=== PATIENT | male | born 1930 | race Caucasian/White ===

== ENCOUNTER → 2017-03-12 | Outpatient (CLI) | payer OTHER ==
[~2017-03-12] MED LIST: ASPIRIN325 PO; CENTRUM SILVER1 EAC5 PO; COREG PO; COUMADIN 2 MG TA2 M1 PO; DEMADEX20 MG PO; FISHOIL PO; GLIPIZIDE ER2.5 MG PO; K-DUR 20 MEQ T20 MEQ PO; KEFLEX250 MG PO; LASIX 40 MG TAB40 M1 PO; LEVOTHYROXINE 0.15MG PO; LIPITOR20 MG PO; LISINOPRIL40 MG PO; NORVASC10 MG PO; POTASSIUM20 PO; PROVENTIL INH; SYNTHROID112 MCG PO; [UNRECOGNIZED DRUG - OTHER] PO
[2017-03-12 07:10] LABS: ABSOLUTE NEUTROPHILS 3.9 thou/uL (1.4-8.2); BASOPHILS 0.7 % (0.0-2.0); EOSINOPHILS 1.4 % (0.0-3.0); HEMATOCRIT 45.7 % (42.0-52.0); LYMPHOCYTES 14.8 % (24.0-44.0); MCH 27.3 pg (26.0-34.0); MCHC 32.8 g/dL (28.0-37.0); MONOCYTES 9.3 % (1.0-8.0); PLATELET COUNT 118 thou/uL (150-400); POLYS 73.8 % (36.0-66.0); RBC 5.51 mil/uL (4.50-6.00); RDW 19.1 % (10.5-14.5); WBC 5.3 thou/uL (4.0-11.0)
[2017-03-12 07:15] LABS: MANUAL DIFF NO
[2017-03-12 07:17] LABS: CALCIUM 8.9 mg/dL (8.5-10.1); CREATININE 2.4 mg/dL (0.7-1.3); POTASSIUM 3.6 mmol/L (3.5-5.1)
[2017-03-12 07:22] LABS: ALBUMIN 3.5 g/dL (3.4-5.0); APTT 33.8 Seconds (24.5-32.8); INR 2.4; PROTIME 25.4 Seconds (9.3-11.4); TOTAL BILIRUBIN 2.3 mg/dL (<0.1-1.0); TOTAL PROTEIN 6.5 g/dL (6.4-8.2)
== END | disposition home or self-care (01) ==
LOC: CATH 06:30
PROVIDERS: Internal Medicine Cardiovascular Disease
DX: I48.91 Unspecified atrial fibrillation (principal); I11.0 Hypertensive heart disease with heart failure; I50.9 Heart failure, unspecified; E11.9 Type 2 diabetes mellitus without complications; I25.2 Old myocardial infarction; I25.10 Atherosclerotic heart disease of native coronary artery without angina pectoris; E78.5 Hyperlipidemia, unspecified; E03.9 Hypothyroidism, unspecified; K21.9 Gastro-esophageal reflux disease without esophagitis; Z95.1 Presence of aortocoronary bypass graft; Z98.890 Other specified postprocedural states; Z96.653 Presence of artificial knee joint, bilateral; Z79.899 Other long term (current) drug therapy
CPT/HCPCS: 62110; 62900; 70005

== ENCOUNTER → 2017-05-20 | Outpatient (CLI) | payer OTHER | LOC: HYPER 07:23 | DX: I87.333 Chronic venous hypertension (idiopathic) with ulcer and inflammation of bilateral lower extremity (principal); L97.221 Non-pressure chronic ulcer of left calf limited to breakdown of skin; L97.821 Non-pressure chronic ulcer of other part of left lower leg limited to breakdown of skin; L97.811 Non-pressure chronic ulcer of other part of right lower leg limited to breakdown of skin; M19.90 Unspecified osteoarthritis, unspecified site; I48.91 Unspecified atrial fibrillation; I25.10 Atherosclerotic heart disease of native coronary artery without angina pectoris; I11.0 Hypertensive heart disease with heart failure; I50.40 Unspecified combined systolic (congestive) and diastolic (congestive) heart failure; E78.5 Hyperlipidemia, unspecified; Z95.0 Presence of cardiac pacemaker; Z79.01 Long term (current) use of anticoagulants; Z79.84 Long term (current) use of oral hypoglycemic drugs; Z96.653 Presence of artificial knee joint, bilateral; Z95.1 Presence of aortocoronary bypass graft ==

== ENCOUNTER → 2017-06-03 | Outpatient (CLI) | payer OTHER | LOC: HYPER 07:14 | DX: I87.333 Chronic venous hypertension (idiopathic) with ulcer and inflammation of bilateral lower extremity (principal); E11.622 Type 2 diabetes mellitus with other skin ulcer; L97.221 Non-pressure chronic ulcer of left calf limited to breakdown of skin; L97.811 Non-pressure chronic ulcer of other part of right lower leg limited to breakdown of skin; I25.10 Atherosclerotic heart disease of native coronary artery without angina pectoris; R60.0 Localized edema; M19.90 Unspecified osteoarthritis, unspecified site; I48.91 Unspecified atrial fibrillation; I11.0 Hypertensive heart disease with heart failure; I50.42 Chronic combined systolic (congestive) and diastolic (congestive) heart failure; Z95.0 Presence of cardiac pacemaker; Z79.84 Long term (current) use of oral hypoglycemic drugs; Z79.01 Long term (current) use of anticoagulants; Z95.1 Presence of aortocoronary bypass graft ==

== ENCOUNTER → 2017-06-23 | Outpatient (CLI) | payer OTHER | LOC: HYPER 07:04 | DX: I87.333 Chronic venous hypertension (idiopathic) with ulcer and inflammation of bilateral lower extremity (principal); L97.221 Non-pressure chronic ulcer of left calf limited to breakdown of skin; E11.622 Type 2 diabetes mellitus with other skin ulcer; L97.821 Non-pressure chronic ulcer of other part of left lower leg limited to breakdown of skin; L97.811 Non-pressure chronic ulcer of other part of right lower leg limited to breakdown of skin; E11.621 Type 2 diabetes mellitus with foot ulcer; L97.511 Non-pressure chronic ulcer of other part of right foot limited to breakdown of skin; I25.10 Atherosclerotic heart disease of native coronary artery without angina pectoris; Z79.01 Long term (current) use of anticoagulants; Z79.84 Long term (current) use of oral hypoglycemic drugs; M19.90 Unspecified osteoarthritis, unspecified site; I48.2 Chronic atrial fibrillation; I11.0 Hypertensive heart disease with heart failure; I50.42 Chronic combined systolic (congestive) and diastolic (congestive) heart failure; E78.5 Hyperlipidemia, unspecified; Z96.653 Presence of artificial knee joint, bilateral; Z95.0 Presence of cardiac pacemaker; Z95.1 Presence of aortocoronary bypass graft ==

== ENCOUNTER 2017-08-13 23:12 | Inpatient (IN) | payer OTHER ==
[~2017-08-13] VITALS: Ht 175.3 cm; Wt 78.9 kg
--- NOTE | ~2017-08-13 | HC ---
[facility] [address] [facility] [place] [address] CONSULTATION Name: NEIDA MONTIEL Room #: 247-P ADM IN M.R.#: [id number] Admission: 08/14/17 Attend Phys: Mk Jones MD Discharge: Date of : 30 Report #: [id number] THIS REPORT FOR: //name// CC: Mk Sumner REQUESTING PHYSICIAN: Dr. Powers. HISTORY OF PRESENT ILLNESS: The patient is an 86-year-old male who presented on August 13 initially to [facility] from [facility] after a fall. The patient reportedly had been recently discharged from [facility] approximately 1-2 weeks prior. He had had a fall in June and was found to have septic shock secondary to pneumonia. He had acute renal failure and subsequently was on hemodialysis. He reports hemodialysis has not gone well since starting, his significant other has been on hemodialysis for 7 years. The patient though states that he would not like to continue this at this time, he is aware of the result of not pursuing hemodialysis and his current condition being . The patient states that he would like to pursue comfort care. The patient at this current time denies significant pain. He does report some dyspnea. He denies abdominal pain, nausea, vomiting or diarrhea or constipation. PAST MEDICAL HISTORY: Significant for atrial fibrillation, type 2 diabetes, coronary artery bypass graft secondary to CAD times 5-vessel, hypertension, end-stage renal disease, peripheral vascular disease. PAST SURGICAL HISTORY: Bilateral hernia repair, thyroidectomy, ICD placement, right TKA, left TKA, CABG times 5-vessel. ALLERGIES: No known drug allergies. FAMILY HISTORY: Father with CVA history. SOCIAL HISTORY: No smoking history. Currently reports that he would like to be DNR. MEDICATIONS: Previously Renvela, Lipitor, levothyroxine, warfarin, aspirin, DuoNeb, [place], midodrine, vitamin C, Xanax, Coreg, glipizide, torsemide. REVIEW OF SYSTEMS: GENERAL: The patient denies any significant fevers or chills, recent weight gain, weight loss. CARDIOVASCULAR: Denies current chest pain or palpitations. GASTROINTESTINAL: Does report decreased appetite, but no nausea, vomiting, constipation or diarrhea. GENITOURINARY: Denies significant urinary symptoms at this time, has had [facility] [address] [place] [address] CONSULTATION Name: NEIDA MONTIEL Room #: 247-P [facility] IN .R.#: [id number] Admission: 08/14/17 Attend Phys: Mk Jones MD Discharge: Date of : 30 Report #: [id number] decreased output. PHYSICAL EXAMINATION: VITAL SIGNS: Temperature 36.4, pulse 70, respirations 26, blood pressure 183/44, 88% on 2 liters, although up to 92% shortly after. GENERAL: The patient is alert, oriented times 3, no acute distress. HEENT: Extraocular muscles appear to be intact. Normocephalic and atraumatic. CARDIOVASCULAR: Irregularly irregular rate and rhythm. No apparent murmur. RESPIRATORY: Bilateral lower lobe: Crackles, otherwise within normal limits. ABDOMEN: Soft, nontender to palpation . Positive bowel sounds in all 4 quadrants. LABORATORY DATA: ____ creatinine 2.1. GFR 30 on admission, which has worsened since then. CBC within normal limits. Hemoglobin 11.4. ASSESSMENT AND PLAN: 1. End-stage renal disease at this time. Last dialysis received Wednesday. The patient desires to pursue palliative care route. He is amenable to inpatient hospice versus long-term care with hospice assistance. I have discussed this with binder caser as well pursuing facility that maybe close to his significant others and his home, so that she can visit frequently. Discussed other options as well prior to any decision making including the assisted recurrently and continued dialysis and the patient reports that he would like to discontinue dialysis and also wishes to be DNR/DNI. 2. Hypertension. Management per primary team contributing to overall prognosis at this time. 3. Coronary artery disease. May have a contributing factor to above as well as peripheral vascular disease. 4. Atrial fibrillation. Management per primary team. 5. Diabetes type 2. Management per primary team. We will follow up with case management. Please call us for any questions regarding this patient. Thank you very much for the consultation. By: [id number] Hank Zheng DO /nt
--- NOTE | ~2017-08-13 | HC ---
[facility] [address] [facility] [place] [address] CONSULTATION Name: NEIDA MONTIEL Room #: 247-P ADM IN M.R.#: [id number] Admission: 08/14/17 Attend Phys: Mk Jones MD Discharge: Date of : 30 Report #: [id number] THIS REPORT FOR: //name// CC: Mk Zapien Sabih DATE OF SERVICE: 08/15/2017 REASON FOR CONSULTATION: End-stage renal disease. HISTORY OF PRESENT ILLNESS: This is an 86-year-old who was in [facility] back in June of this year. He is known to have extensive past medical history. He was initiated on hemodialysis. He dialyzes at the [facility]. He presented complaining of shortness of breath, status post fall. He has cardiomyopathy with an ejection fraction of around 25%. He is known to have coronary artery disease, status post CABG bypass surgery. The patient is not really sure about his dialysis regimen. He is not really sure how much fluid was pulled from him on the day that he had a syncopal episode. He is utilizing a right IJ tunneled catheter. He has no cardiac or neurological symptoms to suggest an underlying inciting event. However, he does have an extensive cardiac history including heart failure, CABG as I have stated. I was asked to manage his end-stage renal disease. PAST MEDICAL HISTORY: 1. End-stage renal disease. 2. End-stage cardiac disease with cardiomyopathy. 3. Diabetes mellitus. 4. Hypertension. 5. Hypothyroidism. 6. Parathyroid carcinoma. PAST SURGICAL HISTORY: 1. CABG. 2. Thyroid surgery. 3. Pacemaker. 4. Knee surgery. 5. Thumb amputation. 6. Total knee arthroplasty. 7. AICD. FAMILY HISTORY: His father of stroke. SOCIAL HISTORY: Never smoked. Social drinker. He lives at the [facility]. REVIEW OF SYSTEMS: [facility] [address] [place] [address] CONSULTATION Name: NEIDA MONTIEL Room #: 247-P [facility]#: [id number] Admission: 08/14/17 Attend Phys: Mk Jones MD Discharge: Date of : 30 Report #: [id number] GENERAL: No fever or chills. CARDIOVASCULAR: No chest pain or palpitation. PULMONARY: Significant for shortness of breath. GASTROINTESTINAL: Decreased p.o. intake. GENITOURINARY: No urinary symptoms. PHYSICAL EXAMINATION: GENERAL: The patient is thin, cachectic, malnourished. VITAL SIGNS: Blood pressure was 82/62, pulse rate is 73. HEAD AND NECK: Significant jugular venous distention. CHEST: Decreased air entry bilaterally. Rhonchi on the right side. CARDIOVASCULAR: No rub detected. ABDOMEN: Soft, nontender. LOWER EXTREMITIES: Extensive wounds and +3 edema. LABORATORY DATA: Reviewed. Sodium 133, potassium 4, chloride 99, carbon dioxide 27, BUN 24, creatinine 2.1. RADIOLOGIC IMAGING: Imaging including his chest x-ray, his head CT were reviewed. ASSESSMENT, IMPRESSION AND PLAN: 1. End-stage renal disease. 2. End-stage liver disease. 3. Terminal cardiomyopathy. 4. Atrial fibrillation. 5. Pleural effusion. 6. Respiratory failure. 7. I had a lengthy discussion with the patient and his about his presentation. We will ask Radiology to aspirate his pleural fluid as this is contributing to his shortness of breath. His INR is elevated due to Coumadin and this will be reversed. 8. I see no indication for dialysis at this point; however, we will reevaluate his needs on Wednesday. 9. This is a person with multiorgan failure including terminal heart failure, terminal end-stage renal disease. He is malnourished. He is cachectic. I do not think that he will do well on dialysis. I have talked with the about a DNR status. We will address hospice, palliative, otherwise we will continue with the usual dialysis. By: [id number] Janna Jo MD /jackelin
--- NOTE | ~2017-08-13 | EKG ---
[address] [address] ELECTROCARDIOGRAM REPORT Name: NEIDA MONTIEL Room #: 205-P ADM IN M.R.#: [id number] Admission: 08/14/17 Attend Phys: Mk Jones MD Discharge: Date of : 30 Report #: [id number] THIS REPORT FOR: //name// 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: [birth year] : 1930 Requested By: Marine Thomas Order Number: [id number] MD: Oracio James Measurements Intervals [place] Rate: 68 P: 0 AK: 83 QRS: 249 QRSD: 186 T: 50 QT: 501 QTc: 533 Interpretive Statements Ventricular-paced complexes No further analysis attempted due to paced rhythm Baseline wander in lead(s) V3 Compared to ECG 03/03/2011 08:09:18 No significant changes Electronically Signed On 08-14-2017 8:48:07 CDT by Oracio James [email or web address] <ELECTRONICALLY SIGNED> By: Oracio James MD 08/14/17 0848 Oracio James MD /EPI
--- NOTE | ~2017-08-13 | HC ---
[address] [place] [address] CONSULTATION Name: NEIDA MONTIEL Room #: 247-P ADM IN M.R.#: [id number] Admission: 08/14/17 Attend Phys: Mk Jones MD Discharge: Date of : 30 Report #: [id number] THIS REPORT FOR: //name// CC: Mk Zapien Sabih DATE OF SERVICE: 08/16/2017 WOUND CARE CONSULTATION PERSONAL PHYSICIAN: None on staff. CHIEF COMPLAINT: Decubitus ulcers. HISTORY OF PRESENT ILLNESS: This is an 86-year-old white male who has been a patient of mine in the past, who was admitted to the hospital after a fall while at [facility]. The patient has suffered multiple skin tears to his upper extremities and was noted upon admission to have significant vascular wounds to his left leg and right foot. These have been there since when I have been following off and on for several months. The patient also was recently noted on admission to have an unstageable pressure ulcer to his coccyx. The patient does complain of pain in the coccygeal region. We have been asked to assist in the care of these. The patient denies any other associated ulceration at this time. PAST MEDICAL HISTORY: Atrial fibrillation, syncope, hypoxia, bilateral hernia repair with mesh back in 1989, congestive heart failure with severe ischemic cardiomyopathy, coronary artery bypass disease, severe peripheral vascular disease, hypothyroidism and gout. DRUG ALLERGIES: None. CURRENT MEDICATIONS: Multiple, I reviewed the patient's medication list. SOCIAL HISTORY: The patient states he has never smoked. The patient does not drink alcohol. FAMILY HISTORY: Significant for peripheral vascular disease. REVIEW OF SYSTEMS: CONSTITUTIONAL: The patient denies fever or chills. NEUROLOGIC: Overall generalized weakness, but no isolated weakness in the arms or legs. EYES: No complaints. ENT: No complaints. CARDIAC: The patient denies chest pain, palpitations or peripheral edema. RESPIRATORY: The patient has chronic shortness of breath and dyspnea and the [facility] [address] [place] [address] CONSULTATION Name: NEIDA MONTIEL Room #: [facility] IN [facility].#: [id number] Admission: 08/14/17 Attend Phys: Mk Jones MD Discharge: Date of : 30 Report #: [id number] associated cough. GASTROINTESTINAL: The patient denies nausea or vomiting, but has some anorexia. GENITOURINARY: The patient denies urgency or frequency. MUSCULOSKELETAL: The patient has pain, generalized body aches. SKIN: There are multiple skin tears in the upper extremities as well as an unstageable ulcer in his coccygeal region and vascular ulcers on his left lateral leg and right foot. PHYSICAL EXAMINATION: VITAL SIGNS: Stable. The patient is afebrile. GENERAL: This is an elderly, chronically ill-appearing white male who is in no acute distress. HEENT: Normocephalic, atraumatic. Mucous membranes are dry. Pupils are round. Sclerae are clear. NECK: Shows small amount of JVD, but no masses. LUNGS: Slightly diminished breath sounds heard throughout, with occasional scattered wheeze. HEART: Irregularly irregular, without murmur. ABDOMEN: Soft, nontender, without organomegaly. EXTREMITIES: The patient has trace to 1+ edema in bilateral lower extremities. Evaluation of his left lateral leg reveals a vascular wound which is 100% slough, with no significant tunneling, tracking or undermining. Lamar-ulcer itself is otherwise intact, without significant erythema, warmth or cellulitis. On his upper extremities, the patient has skin tears, which the wound beds are clean and granulating, without signs of infection. On the right dorsal foot is a vascular ulcer, which is 100% slough covered, without signs of infection or erythema or warmth. In the coccygeal region is an unstageable decubitus ulcer, which is 100% slough covered. NEUROLOGIC: Cranial nerves 2-12 are grossly. Motor and sensory grossly intact. LABORATORY DATA: White count 9.0, hemoglobin 11.4. IMPRESSION: 1. Unstageable decubitus ulcer, sacrococcygeal region, present on admission. 2. 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 3. Vascular ulcer, dorsal right foot, full thickness. 4. Multiple skin tears in the upper extremities, which appear to be healing. 5. Generalized debility. 6. History of protein-calorie malnutrition several months ago. PLAN: At this time, we will do morphine and Silvadene cream to all the open ulcerations, cover this with Xeroform and ABD and secure with Kerlix. On the upper extremities, we will use Optifoam AG and secure with Kerlix; changes Wednesday, Wednesday and Wednesday. Put the patient on low-air loss mattress and will be turned every 2 hours. We have talked to the patient about trying to attempt increase his protein supplementation for healing. At this point in time, the [facility] [address] [place] [address] CONSULTATION Name: NEIDA MONTIEL Room #: 247-P ADM IN .R.#: [id number] Admission: 08/14/17 Attend Phys: Mk Jones MD Discharge: Date of : 30 Report #: [id number] patient does not appear to be a good candidate for physical or occupational therapy. We will see how his hospitalization progresses. There has been a talk about possibly going on palliative care. I appreciate the ability to consult. By: 1830 [id number] Clemente De La Garza MD /jackelin
[2017-08-13 23:13] VITALS: BP 100/49
[2017-08-13 23:49] LABS: ABG SAMPLE TYPE ARTERIAL; BE(vivo) -3.3 mmol/L (-2 to +3); HCO3 22.9 mmol/L (22.0-26.0); O2(CT) 16.2 mL/dL (15.0-23.0); O2Hb 92.5 % (92.0-98.0); PCO2 45.8 mmHg (35.0-45.0); PO2 75.3 mmHg (80.0-100.0); tCO2 24.3 mmol/L (24.0-30.0)
[2017-08-13 23:50] LABS: STICK SITE R.BRACHIAL; pH 7.317 (7.360-7.450)
[2017-08-14] VITALS (63 sets, daily range): BP systolic 61–133; BP diastolic 18–102
[2017-08-14 00:01] LABS: HEMATOCRIT 38.7 % (42.0-52.0); HEMOGLOBIN 12.1 gm/dL (14.0-18.0); MCH 27.8 pg (26.0-34.0); MCHC 31.1 g/dL (28.0-37.0); MCV 89.2 fL (80.0-100.0); PLATELET COUNT 139 thou/uL (150-400); RBC 4.34 mil/uL (4.50-6.00); RDW 21.2 % (10.5-14.5); WBC 8.7 thou/uL (4.0-11.0)
[2017-08-14 00:02] LABS: MANUAL DIFF YES
[2017-08-14 00:05] LABS: ANION GAP 7 mmol/L (7-16); BUN 24 mg/dL (7-18); CALCIUM 8.5 mg/dL (8.5-10.1); CHLORIDE 99 mmol/L (98-107); CO2 27 mmol/L (21-32); CREATININE 2.1 mg/dL (0.7-1.3); GLUCOSE 148 mg/dL (74-106); SODIUM 133 mmol/L (136-145)
[2017-08-14 00:13] LABS: TROPONIN-I < 0.04 ng/mL (<0.04-0.07)
[2017-08-14 00:41] LABS: ABSOLUTE NEUTROPHILS 7.4 thou/uL (1.4-8.2); TOTAL CELL COUNT 100
[2017-08-14 00:42] LABS: ANISOCYTOSIS 2+; LARGE PLATELETS FEW; POLYCHROMASIA 1+
[2017-08-14] MEDS ORDERED: ASPIR 8181 MG PO (01:04)
[2017-08-14] MEDS ORDERED: NORCO 5-325 TA1 EACH PO (01:05)
[2017-08-14] MEDS ORDERED: RENVELA800 MG PO (01:05)
[2017-08-14] MEDS ORDERED: DUONEB 2.5-0.5 M3 ML INH (01:05)
[2017-08-14] MEDS ORDERED: MIDODRINE HCL 55 M1 PO (01:06)
[2017-08-14] MEDS ORDERED: JUVEN PACKET1 EACH PO (01:06)
[2017-08-14] MEDS ORDERED: VITAMINC500 PO (01:06)
[2017-08-14] MEDS ORDERED: XANAX 0.25 MG0.25 MG PO (01:07)
[2017-08-14 03:41] LABS: INR 3.3; PROTIME 31.8 Seconds (9.3-11.4)
[2017-08-14 05:42] LABS: INR 3.1; PROTIME 31.4 Seconds (9.3-11.4)
[2017-08-14 13:06] LABS: CLARITY CLOUDY; COLOR DARK YELLOW; TOTAL VOLUME 55 mL
[2017-08-14 13:52] LABS: MANUAL DIFF YES
[2017-08-14 14:10] LABS: BF RBC 1450 /uL
[2017-08-14 14:11] LABS: BF NUCLEATED CELLS 295
[2017-08-14 14:27] LABS: BF MACROPHAGE 52; BF NEUTROPHILS 35
[2017-08-15] VITALS (80 sets, daily range): BP systolic 67–107; BP diastolic 48–88
[2017-08-15 03:08] LABS: BODY FLUID ALBUMIN 1.2 g/dL (()); BODY FLUID AMYLASE 31 U/L (()); BODY FLUID GLUCOSE 100 mg/dL (()); BODY FLUID LDH 114 IU/L (()); BODY FLUID PROTEIN 2.5 g/dL (())
[2017-08-15 09:30] LABS: PROTIME 13.1 Seconds (9.3-11.4)
[2017-08-15 09:32] LABS: INR 1.3
[2017-08-16] VITALS (25 sets, daily range): BP systolic 69–103; BP diastolic 44–65
[2017-08-16 06:01] LABS: HEMOGLOBIN 11.4 gm/dL (14.0-18.0); MCH 27.3 pg (26.0-34.0); MCHC 31.5 g/dL (28.0-37.0); MCV 86.7 fL (80.0-100.0); PLATELET COUNT 150 thou/uL (150-400); RBC 4.16 mil/uL (4.50-6.00); RDW 20.3 % (10.5-14.5)
[2017-08-16 06:11] LABS: MANUAL DIFF YES
[2017-08-16 06:20] LABS: CALCIUM 8.6 mg/dL (8.5-10.1); POTASSIUM 4.4 mmol/L (3.5-5.1)
[2017-08-16 06:26] LABS: CREATININE 3.1 mg/dL (0.7-1.3)
[2017-08-16 06:44] LABS: INR 1.3; PROTIME 13.4 Seconds (9.3-11.4)
[2017-08-16 08:29] LABS: ABSOLUTE NEUTROPHILS 7.7 thou/uL (1.4-8.2); ANISOCYTOSIS 1+; NUCLEATED RBCS 2 /100WBC; POIKILOCYTOSIS SLIGHT; TOTAL CELL COUNT 100
[2017-08-16 08:30] LABS: LARGE PLATELETS OCCASIONAL; OVALOCYTES OCCASIONAL
[2017-08-17] VITALS (25 sets, daily range): BP systolic 77–110; BP diastolic 49–77
[2017-08-17 04:54] LABS: INR 1.5; PROTIME 15.2 Seconds (9.3-11.4)
[2017-08-18] VITALS (11 sets, daily range): BP systolic 69–97; BP diastolic 52–71
[2017-08-18 05:42] LABS: INR 1.7; PROTIME 17.1 Seconds (9.3-11.4)
[2017-08-18 05:46] LABS: ALBUMIN 1.9 g/dL (3.4-5.0); CALCIUM 8.6 mg/dL (8.5-10.1); CREATININE 3.9 mg/dL (0.7-1.3); PHOSPHORUS 3.1 mg/dL (2.5-4.9); POTASSIUM 4.5 mmol/L (3.5-5.1)
[2017-08-18] MEDS ORDERED: AUGMENTIN 875-1 EACH PO (08:33)
[2017-08-18] MEDS ORDERED: XANAX 0.25 MG0.25 MG PO (08:34)
[2017-08-18] MEDS ORDERED: HYDROCODON-ACE1 EAC7 PO (08:34)
== END 2017-08-18 11:00 | disposition hospice, home (50) | DRG 177 ==
LOC: ER 23:12 → EROBS 08-14 02:27 → ICU 08-14 02:27 → 2N 08-14 03:30 → ICU 08-14 11:46
PROVIDERS: Emergency Medicine; Hospitalist; Internal Medicine Endocrinology, Diabetes & Metabolism; Nurse Practitioner Acute Care; Radiology Diagnostic Radiology
PROC: BB4BZZZ Ultrasonography of Pleura (ICD-10-PCS; principal; 2017-08-15)
PROC: B548ZZA Ultrasonography of Superior Vena Cava, Guidance (ICD-10-PCS; principal; 2017-08-15)
PROC: 0W9930Z Drainage of Right Pleural Cavity with Drainage Device, Percutaneous Approach (ICD-10-PCS; principal; 2017-08-15)
PROC: 02HV33Z Insertion of Infusion Device into Superior Vena Cava, Percutaneous Approach (ICD-10-PCS; principal; 2017-08-15)
DX: J69.0 Pneumonitis due to inhalation of food and vomit (principal); N18.6 End stage renal disease; J96.91 Respiratory failure, unspecified with hypoxia; I13.2 Hypertensive heart and chronic kidney disease with heart failure and with stage 5 chronic kidney disease, or end stage renal disease; I50.22 Chronic systolic (congestive) heart failure; N39.0 Urinary tract infection, site not specified; J90 Pleural effusion, not elsewhere classified; R33.9 Retention of urine, unspecified; N35.9 Urethral stricture, unspecified; Z66 Do not resuscitate; E03.9 Hypothyroidism, unspecified; K72.90 Hepatic failure, unspecified without coma; I48.91 Unspecified atrial fibrillation; I25.5 Ischemic cardiomyopathy; L89.150 Pressure ulcer of sacral region, unstageable; I25.10 Atherosclerotic heart disease of native coronary artery without angina pectoris; E11.51 Type 2 diabetes mellitus with diabetic peripheral angiopathy without gangrene; M10.9 Gout, unspecified; E11.22 Type 2 diabetes mellitus with diabetic chronic kidney disease; Z96.653 Presence of artificial knee joint, bilateral; Z95.1 Presence of aortocoronary bypass graft; Z99.2 Dependence on renal dialysis; Z89.012 Acquired absence of left thumb; Z79.01 Long term (current) use of anticoagulants; Z79.82 Long term (current) use of aspirin; Z79.899 Other long term (current) drug therapy; Z82.3 Family history of stroke; Z82.49 Family history of ischemic heart disease and other diseases of the circulatory system
CPT/HCPCS: 10078; 50455